=== PATIENT | male | born 1980 ===

== ENCOUNTER 2024-05-17 07:30 | Inpatient (IN) | payer OTHER ==
[~2024-05-17] VITALS: Ht 177.8 cm; Wt 99.8 kg
[~2024-05-17 07:30] MED LIST: CELEBREX200MG PO; NEURONTIN300 MG PO; POLY119PG PO
[2024-05-17 09:03] LABS: PH,URINE 5.5 (5.0-8.0); URINE APPEARANCE Clear; URINE BILIRRUBIN Negative (NEGATIVE); URINE BLOOD Negative; URINE COLOR Yellow; URINE GLUCOSE Negative (NEGATIVE); URINE KETONE Negative (NEGATIVE); URINE LEUKOCYTE Negative; URINE NITRATE Negative; URINE PROTEIN Negative (NEGATIVE); URINE UROBILINOGEN 0.2 E.U./dl
[2024-05-17 09:07] LABS: URINE BACTERIA 7.3 uL (0.0-1933); URINE WBC 2.1 uL (0.0-23.2)
[2024-05-17 09:14] LABS: HEMATOCRIT 44.7 % (39.0-48.0); HEMOGLOBIN 14.2 g/dL (13-16.00); MEAN CORPUSCULAR HEMOGLOBIN 21.3 pg (27.00-32.0); MEAN CORPUSCULAR HGB CONC 31.7 g/dl (32.0-36.0); PLATELET COUNT 279 K/uL (150-450)
[2024-05-17 09:19] LABS: URINE EPITHELIAL CELLS 0.4 uL (0.0-38.8); URINE RBC 1.9 uL (0.0-20.8)
[2024-05-17 09:22] VITALS: BP 124/83
[2024-05-17 09:36] LABS: MEAN CELL VOLUME 67.2 fL (80.0-100.00)
[2024-05-17 09:37] LABS: RED BLOOD COUNT 6.65 M/uL (4.00-6.00)
[2024-05-17 09:54] LABS: INR 1.15; PARTIAL THROMBOPLASTIN TIME 30.9 SECONDS (22.0-34.0); PROTHROMBIN TIME 12.4 SECONDS (9.0-11.5)
[2024-05-17 10:14] LABS: CALCIUM 9.4 mg/dL (8.5-10.1); CREATININE SERUM 1.15 mg/dL (0.70-1.30); GFR 69.74; POTASSIUM 4.35 mEq/L (3.5-5.1)
[2024-05-22] MEDS ORDERED: ENOXAPARIN SODIUM 40 MG/0.4 ML SYRINGE SUBCUTANEO ONE (09:16)
[2024-05-22] MEDS ORDERED: CEFTRIAXONE SODIUM 2,000 MG VIAL ONE (09:17)
[2024-05-22] MEDS ORDERED: METRONIDAZOLE/SODIUM CHLORIDE 500 MG/100 ML PIGGYBACK IV ONE (09:20)
[2024-05-22] MEDS ORDERED: BUPIVACAINE HCL/Mpf 0.5% 10ML VIAL ONE (11:08)
[2024-05-22] MEDS ORDERED: SUGAMMADEX SODIUM 200 MG/2 ML VIAL IV ONE (13:39)
[2024-05-22] MEDS ORDERED: HYDROGEN PEROXIDE 473 ML BOTTLE TOP ONE (13:49)
[2024-05-22] MEDS ORDERED: CELEBREX200MG PO (13:57)
[2024-05-22] MEDS ORDERED: PERCOCET 5-3251 EACH PO (13:57)
[2024-05-22] MEDS ORDERED: NEURONTIN300 MG PO (13:57)
[2024-05-22] MEDS ORDERED: POLY119PG PO (13:58)
[2024-05-22] MEDS ORDERED: GABAPENTIN 300 MG CAPSULE PO SCH (14:20)
[2024-05-22] MEDS ORDERED: ENALAPRILAT DIHYDRATE 1.25 MG/ML VIAL IV PRN (14:30)
[2024-05-22] MEDS ORDERED: 0.9 % SODIUM CHLORIDE 1,000 ML IV SCH (14:30)
[2024-05-22] MEDS ORDERED: MORPHINE SULFATE 4 MG/ML VIAL IV PRN (14:30)
[2024-05-22] MEDS ORDERED: MORPHINE SULFATE 4 MG/ML VIAL IV ONE (14:40)
[2024-05-22] MEDS ORDERED: ONDANSETRON HCL 2 MG/ML VIAL ONE (16:20)
[2024-05-22] MEDS ORDERED: PIPERACILLIN/TAZOBACTAM SODIUM 3.375 GM VIAL IV ONE (16:24)
[2024-05-22] MEDS ORDERED: CELECOXIB 200 MG CAPSULE PO SCH (17:00)
[2024-05-22] MEDS ORDERED: MORPHINE SULFATE 4 MG,MORPHINE SULFATE 1 MG IV PRN (17:00)
[2024-05-22] MEDS ORDERED: ONDANSETRON HCL 2 MG/ML VIAL IV SCH (18:00)
[2024-05-22] MEDS ORDERED: PIPERACILLIN/TAZOBACTAM SODIUM 3.375 GM in DEXTROSE 5 % IN WATER 100 ML IV SCH (18:00)
[2024-05-23] MEDS ORDERED: PIPERACILLIN/TAZOBACTAM SODIUM 3.375 GM in 0.9 % SODIUM CHLORIDE 100 ML IV SCH
[2024-05-23 00:51] VITALS: BP 106/66; O2SAT 97
[2024-05-23 08:03] VITALS: BP 122/82; O2SAT 95
[2024-05-23] MEDS ORDERED: POLYETHYLENE GLYCOL 3350 17 GM BLIST.PACK PO SCH (09:00)
[2024-05-23] MEDS ORDERED: PANTOPRAZOLE SODIUM 40 MG TABLET.DR PO SCH (09:00)
[2024-05-23] MEDS ORDERED: ENOXAPARIN SODIUM 40 MG/0.4 ML SYRINGE SUBCUTANEO SCH (09:00)
== END 2024-05-23 10:22 | disposition home or self-care (01) | DRG 337 ==
LOC: O/R 05-22 06:20 → SURH 05-22 07:30
PROVIDERS: ADMIT Surgery; ATTEND Surgery
PROC: 0WQF4ZZ Repair Abdominal Wall, Percutaneous Endoscopic Approach (ICD-10-PCS; 2024-05-22)
PROC: 0DNW4ZZ Release Peritoneum, Percutaneous Endoscopic Approach (ICD-10-PCS; principal; 2024-05-22 09:15)
DX: K43.2 Incisional hernia without obstruction or gangrene (principal); K66.0 Peritoneal adhesions (postprocedural) (postinfection)